=== PATIENT | female | born 1975 | race Caucasian/White ===

== ENCOUNTER 2021-08-28 02:01 | Day surgery (SDC) | payer OTHER, SELFPAY ==
[2021-08-27 09:48] VITALS: BMI 22.1
[2021-08-28 09:22] VITALS: BP 107/60; PULSE 78; RESP 16; TEMP 35.9; O2SAT 100; BMI 21.9
--- NOTE | 2021-08-28 09:55 | WPDHPUPDATE1 ---
History and Physical Update Update Date/Time: 08/28/21 09:55 History and Physical has been reviewed, including an updated exam of the patient. There are NO changes in the patient's condition. Risks, benefits, and alternatives have been discussed and questions answered. Patient agrees to proceed with procedure.
--- NOTE | 2021-08-28 09:58 | W.PM.PROC2 ---
Procedure Note - Detailed Date of Procedure 08/28/21 Pre-op Diagnosis hemorrhoids Post-op Diagnosis same Procedure Performed IRC (infrared coagulation) Surgeon Roshan Santa MD Anesthesia none Description of Procedure rectal exam with small external hemorrhoids, no fissure, no lesions. Then I introduced anoscope and found grade II internal hemorrhoids at 3 o'clock position, IRC probe was advanced and hemorrhoid treated at 1.5 seconds x4 Complications No immediate complications
[2021-08-28 10:00] VITALS: BP 107/60; PULSE 78; RESP 16; TEMP 35.9; O2SAT 100
== END 2021-08-28 10:02 | disposition home or self-care (01) ==
PROVIDERS: PCP Family Medicine; Visit Provider Internal Medicine Gastroenterology
PROC: (CPT 46930; principal; 2021-08-28 10:30)
DX: K64.8 Other hemorrhoids (principal); K59.00 Constipation, unspecified
CPT/HCPCS: 46930

== ENCOUNTER 2021-09-26 11:18 | Outpatient (CLI) | payer OTHER, SELFPAY ==
[2021-09-26 11:58] LABS: Hematocrit 38.4 % (37.0-47.0); Hemoglobin 12.6 g/dL (12.0-15.0)
== END 2021-09-26 11:19 | disposition home or self-care (01) ==
LOC: ANHLAB 11:20
PROVIDERS: PCP Family Medicine; Visit Provider Anesthesiology
DX: Z01.812 Encounter for preprocedural laboratory examination (principal)
CPT/HCPCS: 36415; 85014; 85018

== ENCOUNTER → 2021-10-04 03:03 | Outpatient (CLI) | payer OTHER, SELFPAY ==
[2021-10-04 12:11] LABS: SARS-CoV-2 RNA PCR Negative
== END ==
PROVIDERS: PCP Family Medicine; Visit Provider Internal Medicine Gastroenterology
DX: Z01.812 Encounter for preprocedural laboratory examination (principal); Z20.822 Contact with and (suspected) exposure to COVID-19
CPT/HCPCS: C9803; U0003; U0005

== ENCOUNTER 2021-10-07 00:33 | Day surgery (SDC) | payer OTHER, SELFPAY ==
[2021-09-25 14:49] VITALS: BMI 20.9
[2021-10-07 10:41] VITALS: BP 112/79; PULSE 85; RESP 16; TEMP 36.4; O2SAT 100
[2021-10-07] MEDS: LACTATED RINGERS 1,000 ML 150 ML IV CONT (10:43)
--- NOTE | 2021-10-07 10:56 | WPDANESEPPF ---
Anes - Initial Pre Proc Eval Procedure: Operation Date: 10/07/21 11:30 Proposed Procedures p Colonoscopy - Roshan Santa MD Date/Time: 10/07/21 10:56 Surgeon: Roshan Santa MD Pre Op Diagnosis: Rectal bleed Patient Data Age: 45 Gender: F Height: 1.65 m Weight: 57.5 kg Last Vital Signs Temp 36.4 C L 10/07/21 10:41 Pulse 85 10/07/21 10:41 Resp 16 10/07/21 10:41 BP 112/79 10/07/21 10:41 Pulse Ox 100 10/07/21 10:41 Allergies Allergy/AdvReac Type Severity Reaction Status Date / Time No Known Allergies Allergy Verified 10/07/21 10:40 Home Medications Medication Instructions Recorded Confirmed Type hydrocortisone acetate 25 mg 25 mg RECTAL BID #12 ea 09/17/21 10/07/21 Rx rectal suppository docusate sodium 100 mg capsule 100 mg PO DAILY #14 cap 09/23/21 10/07/21 Rx ondansetron HCl 4 mg tablet 4 mg PO Q8H #21 tablet 09/23/21 10/07/21 Rx carisoprodol 350 mg tablet 350 mg PO TID PRN #21 tablet 09/24/21 10/07/21 Rx hydrocodone 5 mg-acetaminophen 325 1 tablet PO Q6H PRN #30 tablet 09/24/21 10/07/21 Rx mg tablet Patient hx anesthesia problems: none Family hx anesthesia problems: none Results Review: All pre-operative results and documents have been reviewed as part of the pre-operative evaluation. [facility] Past Medical History Medical History delivery delivered (~2002) delivery delivered (~2011) Constipation Ovarian cyst (~2012) Surgical History Surgical History Hx of section Hx of ovarian cystectomy Family History Family History Father Alcoholism Grandparent Cancer Social History Social History Smoking status: Never smoker Alcohol intake: current Alcohol use details: socially Substance use: unknown Substance use type: unknown Living arrangements: with family Spiritual care concerns: No Anes - Eval Final PreProcedure Day of Procedure 10/07/21 10:56 Patient weight: normal Heart: regular rate and rhythm Lungs: clear to auscultation Airway: Mallampati scale class II Neurological: alert and oriented Last oral intake: >/= 8 hours ASA classification: I Emergent: no Anesthetic plan: proceed Anesthesia type and monitoring: general GIVS and standard monitoring Results Review: All pre-operative results and documents have been reviewed as part of the pre-operative evaluation. Informed Consent: The patient's anesthetic plan and its attendant risks and benefits were discussed with the patient/family/POA. Questions were solicited and answers provided to the satisfaction of the patient/family/POA.
--- NOTE | 2021-10-07 11:13 | PM.HPGS ---
History of Present Illness History of Present Illness Consent: Risks, benefits, and alternatives have been discussed and questions answered. Patient agrees to proceed with procedure. Chief complaint: Rectal bleed Narrative: Renée Morejon is a 45 year old female with intermittent rectal bleeding, had IRC of hemorrhoids that helped only for few days. Review of Systems Constitutional: Constitutional: Denies headache(s) and Denies weakness Eyes: Eyes: Denies blurry vision ENT: Reports Normal hearing present, Denies headache(s) and Denies neck pain Cardiovascular: Cardiovascular: Denies chest pain and Denies dyspnea Respiratory: Respiratory: Denies dyspnea Gastrointestinal: Gastrointestinal: Reports no additional gastrointestinal complaints Genitourinary: Genitourinary: Denies dysuria Musculoskeletal: Musculoskeletal: Denies neck pain Integumentary/Breasts: Skin/Breast: Denies dry skin Neurologic: Reports Normal hearing present, Denies headache(s) and Denies weakness Psychiatric: Psychiatric: Denies anxiety Endocrine: Endocrine: Denies change in body appearance Hematologic/Lymphatic: Hematologic/Lymphatic: Denies easy bleeding Allergic/Immunologic: Allergic/Immunologic: Denies urticaria PMF Past Medical History Medical History delivery delivered (~2002) delivery delivered (~2011) Constipation Ovarian cyst (~2012) Surgical History Surgical History Hx of section Hx of ovarian cystectomy Family History Family History Father Alcoholism Grandparent Cancer Social History Social History Smoking status: Never smoker Alcohol intake: current Alcohol use details: socially Substance use: unknown Substance use type: unknown Living arrangements: with family Spiritual care concerns: No Meds Home Medications and Allergies Home Medications Medication Instructions Recorded Confirmed Type hydrocortisone acetate 25 mg 25 mg RECTAL BID #12 ea 09/17/21 10/07/21 Rx rectal suppository docusate sodium 100 mg capsule 100 mg PO DAILY #14 cap 09/23/21 10/07/21 Rx ondansetron HCl 4 mg tablet 4 mg PO Q8H #21 tablet 09/23/21 10/07/21 Rx carisoprodol 350 mg tablet 350 mg PO TID PRN #21 tablet 09/24/21 10/07/21 Rx hydrocodone 5 mg-acetaminophen 325 1 tablet PO Q6H PRN #30 tablet 09/24/21 10/07/21 Rx mg tablet Allergies Allergy/AdvReac Type Severity Reaction Status Date / Time No Known Allergies Allergy Verified 10/07/21 10:40 Vital Signs Vital Signs - 24 hr 10/07/21 10:41 Temperature 97.5 F L Pulse Rate 85 Respiratory Rate 16 Blood Pressure 112/79 Pulse Oximetry 100 Exam Const: General: comfortable and no acute distress HENMT: General nose exam: Normal nares present Eyes: General: appearance normal, both eyes and all related structures Neck: Neck: no JVD Resp: Auscultation: clear to auscultation bilaterally Cardio: Rate: regular rate Rhythm: regular rhythm GI: Inspection: non-distended GI Palp: Yes Soft to palpation Skin: General skin exam: normal color Neuro: General: gait normal Speech: normal speech Extrem: General: normal to inspection Psych: Mental Status: mental status grossly normal Assessment and Plan Assessment and plan (1) Blood present in stool: Code(s): K92.1 - Melena Status: Acute Assessment and Plan: colonoscopy
[2021-10-07 11:35] VITALS: BP 94/57; PULSE 78; RESP 18; O2SAT 100
[2021-10-07 11:45] VITALS: BP 105/56; PULSE 62; RESP 20; O2SAT 99
[2021-10-07 11:55] VITALS: BP 107/72; PULSE 64; RESP 18; O2SAT 100
== END 2021-10-07 12:08 | disposition home or self-care (01) ==
PROVIDERS: PCP Family Medicine; Visit Provider Internal Medicine Gastroenterology
PROC: 0DJD8ZZ Inspection of Lower Intestinal Tract, Via Natural or Artificial Opening Endoscopic (ICD-10-PCS; CPT 45378; principal; 2021-10-07 11:30)
DX: K92.1 Melena (principal); K51.20 Ulcerative (chronic) proctitis without complications; K64.8 Other hemorrhoids; K62.89 Other specified diseases of anus and rectum
CPT/HCPCS: 45380; 36415; 85014; 85018; 88305; C9803; J2704; J7120; U0003; U0005

== ENCOUNTER → 2021-10-08 01:51 | Outpatient (CLI) | payer OTHER, SELFPAY ==
[2021-10-08 13:03] LABS: SARS-CoV-2 RNA PCR Negative
== END ==
PROVIDERS: PCP Family Medicine; Visit Provider Surgery Plastic and Reconstructive Surgery
DX: Z01.812 Encounter for preprocedural laboratory examination (principal); Z20.822 Contact with and (suspected) exposure to COVID-19
CPT/HCPCS: C9803; U0003; U0005

== ENCOUNTER 2021-10-11 08:48 | Day surgery (SDC) | payer OTHER, SELFPAY ==
[2021-09-25 13:06] VITALS: BMI 20.8
--- NOTE | 2021-09-25 13:31 | SUR.PREOP ---
PRE-OPERATIVE INSTRUCTIONS [address] [address] 1. Report to the Surgery Center Waiting Room, the entrance is the first door on the right after passing through the automatic sliding doors, at time __0900___on date_10/11/2021__. OR Time:___10:30__ . When you arrive, you and your visitor will be screened for Covid prior to entry. A mask is required within the surgery center. 2. Preoperative Covid Testing Requirements: No Covid Test Needed if: (proof is required) ? Patient has received Covid Vaccine at least 14 days prior to procedure date or ? Patient has positive Covid test result within last 90 days of surgery date. Covid Test needed if above criteria is not met: Covid testing must be conducted within 72 hours of surgery and patient is asked to isolate self from time of testing until procedure. You will be scheduled for your Preoperative testing. Your time for testing is on 10/08/21_ (date) at time __0730___. You will go to the (Testing Site) for your preoperative testing. The Testing Site is located at [address] [place] [address]. [facility] on Corner of [address] [facility]. You will only be called if test is a positive result. 3. Patients may have clear liquids (water, carbonated beverages, clear teas, apple juice) until 3 hours prior to surgery with a maximum of 20 ounces. ? No food from midnight until time of surgery. ? Infants may have breast milk until 4 hours before surgery, infant formula 6 hours prior to surgery. ? Children will be allowed to drink immediately following surgery. If applicable, please bring a bottle or sippy cup to assist with drinking. Juice, water, soda, and popsicles are readily available. For infants on formula, please bring formula the day of surgery. Pacifiers are allowed. 4. Take the following medications with a SIP of water the morning of surgery: 1. n/a 2. 3. Medications to discontinue per physician order: 1. n/a date to discontinue: 5. No make-up, nail welsh, hairspray, perfume, deodorant, or body powder the day of surgery. No jewelry (including any body piercings) or valuables the day of surgery. Please take a shower or bath the night before, or the morning of, surgery with an antibacterial soap. Wear comfortable, loose fitting clothing. Children are encouraged to wear pajamas. ? Jewelry must be removed prior to entering the operating room. Rings and piercings that are not removed will be cut off. The center will not accept responsibility for valuables. Please leave all valuables, including medications, at home the day of surgery. 6. When going home after surgery, a licensed service parts driver must drive you home. NO public transportation without another adult. We recommend someone to stay with you, no alcoholic beverages, driving or important decision making for 24 hours after surgery. For pediatric surgeries, we recommend two adults to accompany a child home. (Only one will be allowed into the building with the patient) 7. 1 visitor (over age of 18) will be allowed. The visitor will drop patient off and remain in car until patient is prepared for surgery. Visitor will be called to join patient. Exceptions: Adult of a pediatric patient, patients with intellectual and/or developmental disability or cognitive impairments can accompany patient through-out visit. Visitors will need to be screened prior to coming into the center. Screening will include Covid symptom question checking. Visitor must wear a mask. Visitor will remain in patient?s room for duration of stay. 8. Follow any additional instructions given by your physician. Telephone instruction given to:__patient-Renée
--- NOTE | 2021-10-10 11:16 | P.PNAN_ITS ---
Anes - Initial Pre Proc Eval Procedure: Operation Date: 10/11/21 10:30 Proposed Procedures p Bilateral Breast Implant Exchange with Capsulectomy - Madhu Martin MD Date/Time: 10/10/21 11:16 Surgeon: Madhu Martin MD Pre Op Diagnosis: History of Breast Augmentation Patient Data Age: 45 Gender: F Height: 1.65 m Weight: 56.8 kg Allergies Allergy/AdvReac Type Severity Reaction Status Date / Time No Known Allergies Allergy Verified 10/07/21 10:40 Home Medications Medication Instructions Recorded Confirmed Type hydrocortisone acetate 25 mg 25 mg RECTAL BID #12 ea 09/17/21 10/07/21 Rx rectal suppository docusate sodium 100 mg capsule 100 mg PO DAILY #14 cap 09/23/21 10/07/21 Rx ondansetron HCl 4 mg tablet 4 mg PO Q8H #21 tablet 09/23/21 10/07/21 Rx carisoprodol 350 mg tablet 350 mg PO TID PRN #21 tablet 09/24/21 10/07/21 Rx hydrocodone 5 mg-acetaminophen 325 1 tablet PO Q6H PRN #30 tablet 09/24/21 10/07/21 Rx mg tablet mesalamine 1,000 mg rectal 1 g RECTAL QHS 30 Days #30 ea 10/07/21 Rx suppository Patient hx anesthesia problems: post op nausea/vomiting Family hx anesthesia problems: none Results Review: All pre-operative results and documents have been reviewed as part of the pre-operative evaluation. [facility] Past Medical History Medical History (Updated 10/11/21 @ 09:17 by Everardo Han DO) delivery delivered (~2002) delivery delivered (~2011) Constipation Ovarian cyst (~2012) Proctitis Ulcerative colitis Surgical History Surgical History Hx of section Hx of ovarian cystectomy Family History Family History Father Alcoholism Grandparent Cancer Social History Social History Smoking status: Never smoker Alcohol intake: current Alcohol use details: socially Substance use: unknown Substance use type: unknown Living arrangements: with family Spiritual care concerns: No Anes - Eval Final PreProcedure Day of Procedure 10/10/21 11:16 Patient weight: normal Heart: regular rate and rhythm Lungs: clear to auscultation and normal air movement Airway: Mallampati scale class II Neurological: alert and oriented Last oral intake: >/= 8 hours ASA classification: II Emergent: no Anesthetic plan: proceed Anesthesia type and monitoring: general LMA and standard monitoring Results Review: All pre-operative results and documents have been reviewed as part of the pre-operative evaluation. Informed Consent: The patient's anesthetic plan and its attendant risks and benefits were discussed with the patient/family/POA. Questions were solicited and answers provided to the satisfaction of the patient/family/POA.
[2021-10-11 09:33] VITALS: BP 125/82; PULSE 68; RESP 18; TEMP 37.2; O2SAT 100; BMI 21.0
[2021-10-11] MEDS: SCOPOLAMINE 1.5 MG PATCH TRANSDERM (09:41)
[2021-10-11] MEDS: LACTATED RINGERS 1,000 ML 30 ML IV CONT ×2 (09:41→11:34)
--- NOTE | 2021-10-11 10:00 | WPDHPUPDATE1 ---
History and Physical Update Update Date/Time: 10/11/21 10:00 History and Physical has been reviewed, including an updated exam of the patient. There are NO changes in the patient's condition. Risks, benefits, and alternatives have been discussed and questions answered. Patient agrees to proceed with procedure.
--- NOTE | 2021-10-11 10:07 | W.PM.PROC2 ---
Procedure Note - Detailed Date of Procedure 10/11/21 Pre-op Diagnosis History of Breast Augmentation Post-op Diagnosis Same Procedure Performed Bilateral breast implant exchange Surgeon Madhu Martin MD Anesthesia General Findings Previous implants removed today: Right Style 20 - 500cc Left Style 15 - 457cc - Implant was ruptured, intracapsular. New implants: Right REF# [id number] SN [id number] Left REF# [id number] SN [id number] Description of Procedure She is here today for bilateral breast implant exchange. Previously and again today the risks, benefits, alternatives were discussed in extensive detail. I wanted her to be very realistic about the risks involved as well as expectations. She would like to be approximally 10% larger, minimize increase width. We discussed aftercare and what to monitor for. Made sure answered all of her questions to her satisfaction today and consent was obtained. Marked in the preoperative holding area with their verification. The patient was taken to the operating room placed supine on the operating table. Anesthesia was provided by anesthesiology. A surgical time-out was taken. We cleansed the skin and 1% lidocaine and 0.25% Marcaine with epinephrine was used anesthetize as a field block. She was prepped and draped in a standard sterile fashion. Tegaderm nipple Isaacs were placed. A 15 blade used to make an incision along the inframammary fold at the previous incision. Dissection was continued at 45 degree angle until the old capsule was identified and entered. I removed the old implant and examined the pocked. The right implant was intact, left ruptured. I then copiously irrigated with 3 liters of saline solution on TUR tubing and verified a strict hemostasis. Next the use a triple antibiotic and Betadine containing solution to irrigate the pocket. Bilateral medial/superior capsulotomy completed, lateral capsulorraphy. I washed my gloves with the triple antibiotic and Betadine solution. We washed the implant immediately upon opening it with this solution and only opened it when we needed it. I used implant funnel and no-touch technique. The implant was introduced into the pocket using the funnel. Having verified positioning of the implant this was closed using 2-0 Vicryl followed by 3-0 Monocryl in a running subcuticular 4-0 Monocryl followed by tissue glue. Fluffs and surgical bra were placed. Patient was awoke and taken to PACU without difficulty. All instrument sponge counts were correct at the end of the case. Estimated Blood Loss 25 Drains No Packing No Pathology None sent Complications No immediate complications Condition Stable Disposition PACU
[2021-10-11] MEDS: ceFAZolin SODIUM 2 GM/20 ML SW SYRINGE IV PUSH (10:29)
[2021-10-11] MEDS: LIDO 1%/EPINEPHRINE 1:100,000 20 ML VIAL 30 ML INFILTRATE (11:13)
[2021-10-11] MEDS: BUPIVACAINE HCL 0.25% 50 ML VIAL 30 ML INFILTRATE (11:14)
[2021-10-11 11:34] VITALS: BP 115/66; PULSE 97; RESP 14; TEMP 36.4; O2SAT 100
[2021-10-11 11:49] VITALS: BP 124/85; PULSE 94; RESP 15; O2SAT 100
[2021-10-11] MEDS: MEPERIDINE HCL INJ (*CRX) 100 MG/ML AMPUL 25 MG IV PUSH (12:02)
[2021-10-11 12:05] VITALS: BP 110/78; PULSE 76; RESP 11; O2SAT 100
[2021-10-11 12:11] VITALS: BP 120/83; PULSE 75; RESP 16; O2SAT 100
[2021-10-11] MEDS: oxyCODONE HCL (*CRX) 5 MG TAB IR PO (12:37)
[2021-10-11 12:40] VITALS: BP 112/80; PULSE 67; RESP 16
--- NOTE | 2021-10-11 15:09 | WPDANESPN ---
Anes - Prog Note Post-Op Date/Time: 10/11/21 12:09 Cardiovascular status: normal Respiratory status: normal Airway patency: baseline Mental status: baseline Post-Op hydration status: normal Vital Signs: Last Vital Signs Temp 36.4 C L 10/11/21 11:34 Pulse 67 10/11/21 12:40 Resp 16 10/11/21 12:40 BP 112/80 10/11/21 12:40 Pulse Ox 100 10/11/21 12:11 Pain Score (VAS): 2 I/O: Intake & Output 10/10/21 10/11/21 10/11/21 23:59 07:59 15:59 Intake Total 850 Balance 850 Post-procedural complaints: none Patient Feedback: Patient satisfied with anesthetic care. Other Findings: Patient vital signs back to baseline. Patient denies nausea and vomiting. Patient's pain under control. Patient OK for discharge.
== END 2021-10-11 13:06 | disposition home or self-care (01) ==
PROVIDERS: PCP Family Medicine; Visit Provider Surgery Plastic and Reconstructive Surgery
PROC: (CPT 19342; principal; 2021-10-11 10:30)
DX: Z98.82 Breast implant status (principal)
CPT/HCPCS: 19342

== ENCOUNTER 2022-07-17 12:03 | Outpatient (CLI) | payer OTHER, SELFPAY ==
[2022-07-17 12:41] LABS: Alanine Aminotransferase 17 U/L (6-35); Albumin Level 4.4 g/dL (3.5-5.1); Alkaline Phosphatase 49 U/L (38-126); Aspartate Amino Transferase 25 U/L (14-36); Bilirubin,Total 0.4 mg/dL (0.2-1.3)
== END 2022-07-17 12:04 | disposition home or self-care (01) ==
LOC: ANHLAB 12:04
PROVIDERS: PCP Family Medicine; Visit Provider Nurse Practitioner Family
DX: R10.11 Right upper quadrant pain (principal)
CPT/HCPCS: 36415; 80076